=== PATIENT | female | born 1990 | race African-American/Black ===

== ENCOUNTER 2023-05-23 13:09 | Outpatient (CLI) | payer OTHER | END 2023-05-23 13:10 | disposition home or self-care (01) | LOC: PRENATAL 13:09 | PROVIDERS: ATTEND Obstetrics & Gynecology Maternal & Fetal Medicine | DX: O35.3XX0 Maternal care for (suspected) damage to fetus from viral disease in mother, not applicable or unspecified (principal); O34.219 Maternal care for unspecified type scar from previous cesarean delivery; O44.00 Complete placenta previa NOS or without hemorrhage, unspecified trimester; Z3A.19 19 weeks gestation of pregnancy ==

== ENCOUNTER 2023-08-24 13:51 | Outpatient (CLI) | payer OTHER | END 2023-08-24 13:52 | disposition home or self-care (01) | LOC: PRENATAL 13:51 | PROVIDERS: ATTEND Obstetrics & Gynecology Maternal & Fetal Medicine | DX: O26.849 Uterine size-date discrepancy, unspecified trimester (principal); O36.8199 Decreased fetal movements, unspecified trimester, other fetus; O34.219 Maternal care for unspecified type scar from previous cesarean delivery; Z3A.32 32 weeks gestation of pregnancy ==

== ENCOUNTER 2023-09-21 15:27 | Outpatient (CLI) | payer OTHER | END 2023-09-21 15:28 | disposition home or self-care (01) | LOC: PRENATAL 15:27 | PROVIDERS: ATTEND Obstetrics & Gynecology Maternal & Fetal Medicine | DX: O26.849 Uterine size-date discrepancy, unspecified trimester (principal); O36.8199 Decreased fetal movements, unspecified trimester, other fetus; O34.219 Maternal care for unspecified type scar from previous cesarean delivery; O36.5990 Maternal care for other known or suspected poor fetal growth, unspecified trimester, not applicable or unspecified; Z3A.36 36 weeks gestation of pregnancy ==

== ENCOUNTER 2023-09-28 14:38 | Inpatient (IN) | payer OTHER ==
[~2023-09-28] VITALS: Ht 162.6 cm; Wt 2.7 kg
[2023-09-28 15:24] LABS: HEMOGLOBIN 11.7 g/dL (12.0-15.00); MEAN CELL VOLUME 82.7 fL (80.00-100.00); MEAN CORPUSCULAR HEMOGLOBIN 27.8 pg (27.00-32.0); MEAN CORPUSCULAR HGB CONC 33.6 g/dl (32.0-36.0); PLATELET COUNT 195 K/uL (150-450); RED BLOOD COUNT 4.23 M/uL (4.00-6.00); RED CELL DISTRIBUTION WIDTH 13.5 % (11.5-14.5)
[2023-09-28 15:24] LABS: URINE APPEARANCE Clear; URINE BILIRRUBIN Negative (NEGATIVE); URINE BLOOD Negative; URINE COLOR Yellow; URINE GLUCOSE Negative (NEGATIVE); URINE LEUKOCYTE Negative; URINE NITRATE Negative; URINE PROTEIN Negative (NEGATIVE)
[2023-09-28 15:28] LABS: URINE EPITHELIAL CELLS 2.6 uL (0.0-38.8)
[2023-09-28 15:49] LABS: INR 0.94; PARTIAL THROMBOPLASTIN TIME 29.3 SECONDS (22.0-34.0); PROTHROMBIN TIME 9.9 SECONDS (9.0-11.5)
[2023-09-28 17:16] LABS: URINE BACTERIA 1.2 uL (0.0-1933)
[2023-10-02] MEDS ORDERED: PRENATE ELITE1 EAC2 PO (11:27)
[2023-10-02] MEDS ORDERED: CEFAZOLIN SODIUM 1,000 MG VIAL ONE (13:52)
[2023-10-02] MEDS ORDERED: OXYTOCIN 10 UNITS/ML VIAL ONE (15:39)
[2023-10-02] MEDS ORDERED: ERYTHROMYCIN BASE 1 GM TUBE OP ONE ×2 (15:39→17:15)
[2023-10-02] MEDS ORDERED: CEFAZOLIN SODIUM 1,000 MG VIAL IV ONE (17:15)
[2023-10-02] MEDS ORDERED: OXYTOCIN 10 UNITS/ML VIAL IV SCH (17:15)
[2023-10-02] MEDS ORDERED: MEPERIDINE HCL/PF 50 MG/ML VIAL IM PRN (20:30)
[2023-10-02] MEDS ORDERED: PROMETHAZINE HCL 50 MG/ML AMPUL IM PRN (20:30)
[2023-10-02 22:59] LABS: ABG pCO2 53.7 mmHg (35-45); BASE EXCESS -3.5 mmol/l; BICARBONATE 24.1 mmol/l (23-25); SaO2 16.2 %; Tco2 25.8 mmol/l
[2023-10-02 23:00] LABS: o2 21 %
[2023-10-03 06:48] LABS: HEMATOCRIT 32.1 % (36.0-45.00); MEAN CELL VOLUME 84.2 fL (80.00-100.00); MEAN CORPUSCULAR HEMOGLOBIN 28.7 pg (27.00-32.0); MEAN CORPUSCULAR HGB CONC 34.1 g/dl (32.0-36.0); PLATELET COUNT 170 K/uL (150-450); RED BLOOD COUNT 3.81 M/uL (4.00-6.00); RED CELL DISTRIBUTION WIDTH 13.3 % (11.5-14.5)
[2023-10-03] MEDS ORDERED: DOCUSATE SODIUM 100MG CAP PO SCH ×2 (08:00→17:00)
[2023-10-03] MEDS ORDERED: OxyCODONE HCL/APAP UD (PERCOCET) PO PRN (08:00)
[2023-10-03] MEDS ORDERED: PNV,CALCIUM 72/IRON/FOLIC ACID 1 TAB TABLET PO SCH (08:00)
[2023-10-03] MEDS ORDERED: SIMETHICONE 125 MG CAPSULE PO SCH ×2 (08:00→13:00)
[2023-10-04] MEDS ORDERED: PNV,CALCIUM 72/IRON/FOLIC ACID 1 TAB TABLET PO SCH (09:00)
== END 2023-10-04 14:16 | disposition home or self-care (01) | DRG 785 ==
LOC: O/R 10-02 08:52 → LDR 10-02 12:30 → OB/GYN 10-02 20:04
PROVIDERS: ADMIT Obstetrics & Gynecology; ATTEND Obstetrics & Gynecology
PROC: 0UB70ZZ Excision of Bilateral Fallopian Tubes, Open Approach (ICD-10-PCS; 2023-10-02)
PROC: 4A1HXCZ Monitoring of Products of Conception, Cardiac Rate, External Approach (ICD-10-PCS; 2023-10-02)
PROC: 10D00Z1 Extraction of Products of Conception, Low, Open Approach (ICD-10-PCS; principal; 2023-10-02 12:30)
DX: O34.211 Maternal care for low transverse scar from previous cesarean delivery (principal); Z3A.38 38 weeks gestation of pregnancy; Z37.0 Single live birth; Z30.2 Encounter for sterilization; Z20.822 Contact with and (suspected) exposure to COVID-19